=== PATIENT | female | born 1950 | race Caucasian/White ===

== ENCOUNTER 2016-04-01 11:06 | Emergency (ER) | payer OTHER ==
[~2016-04-01] VITALS: Ht 165.1 cm; Wt 160.0 kg
[~2016-04-01 11:06] MED LIST: EXCETAB2; LORTA5 PO; PHEN100 PO
[2016-04-01 13:47] VITALS: BP 141/90; PULSE 85; RESP 18; TEMP 98.3; O2SAT 95
[2016-04-01] MEDS ORDERED: NORC5TAB PO (13:55)
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
== END 2016-04-01 14:16 | disposition home or self-care (01) ==
LOC: NEPA 11:06
DX: M79.609 Pain in unspecified limb (principal); G89.29 Other chronic pain; J45.909 Unspecified asthma, uncomplicated; E78.00 Pure hypercholesterolemia, unspecified; I10 Essential (primary) hypertension
CPT/HCPCS: 99284

== ENCOUNTER 2016-05-05 13:56 | Inpatient (IN) | payer OTHER ==
[~2016-05-05] VITALS: Ht 165.1 cm; Wt 128.2 kg
[~2016-05-05 13:56] MED LIST changes: +NORC5TAB PO
[2016-05-05 14:15] VITALS: BP 186/96; PULSE 89; RESP 18; TEMP 98.9; O2SAT 91
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
[2016-05-05 14:58] VITALS: BP 194/86; PULSE 104; RESP 18; O2SAT 93
[2016-05-05] MEDS ORDERED: cloNIDine HCL 0.1 MG TAB PO ONE (15:15)
[2016-05-05 15:27] LABS: AUTOMATED NEUTROPHIL # 5.9 TH/MM3 (1.8-7.7); BASOPHIL # 0.1 TH/MM3 (0-0.2); BASOPHIL % 0.6 % (0.0-2.0); EOSINOPHIL # 0.2 TH/MM3 (0-0.4); EOSINOPHIL % 2.1 % (0.0-4.0); HEMATOCRIT 41.5 % (35.0-46.0); HEMO FLAGS DIFF FINAL; LYMPHOCYTE # 3.1 TH/MM3 (1.0-4.8); MEAN CELL VOLUME 94.9 FL (80.0-100.0); MEAN CORPUSCULAR HEMOGLOBIN 32.6 PG (27.0-34.0); MEAN CORPUSCULAR HGB CONC 34.4 % (32.0-36.0); MONO % 8.5 % (0.0-8.0); NEUT % 57.8 % (16.0-70.0); PLATELET COUNT 281 TH/MM3 (150-450); RED BLOOD COUNT 4.37 MIL/MM3 (4.00-5.30); RED CELL DISTRIBUTION WIDTH 13.3 % (11.6-17.2); WHITE BLOOD COUNT 10.1 TH/MM3 (4.0-11.0)
[2016-05-05 15:53] LABS: ACETAMINOPHEN LESS THAN 2.0 MCG/ML (10.0-30.0); ALKALINE PHOSPHATASE 103 U/L (45-117); ALT (GPT) 18 U/L (10-53); ANION GAP 9 MEQ/L (5-15); AST (GOT) 16 U/L (15-37); BLOOD UREA NITROGEN 19 MG/DL (7-18); CHLORIDE 106 MEQ/L (98-107); GLOMERULAR FILTRATION RATE 72 ML/MIN (>89); SODIUM (NA) 141 MEQ/L (136-145); TOTAL BILIRUBIN ADULT 0.2 MG/DL (0.2-1.0)
[2016-05-05 15:54] LABS: POTASSIUM 4.1 MEQ/L (3.5-5.1)
[2016-05-05 17:21] VITALS: BP 158/100; PULSE 79; RESP 20; O2SAT 93
[2016-05-05 18:21] VITALS: BP 186/90; PULSE 89; RESP 18; O2SAT 93
[2016-05-05 18:59] LABS: AMPHETAMINE, URINE NEG (NEG); BARBITURATES, URINE NEG (NEG); COCAINE, URINE NEG (NEG)
[2016-05-05 19:22] LABS: BACTERIA, URINE MANY /hpf; BLOOD, URINE TRACE (NEG); COMMENT (UR) CULTURE INDICATED; CULTURE IF INDICATED CULTURE INDICATED; GLUCOSE,URINE NEG (NEG); HYALINE CAST, URINE 2 /lpf (RARE); KETONE, URINE NEG (NEG); MUCUS URINE FEW /lpf (OCC); PH, URINE 5.5 (5.0-8.5); SQUAMOUS EPITHELIAL CELL URINE 7 /hpf (0-5); URINE COLOR YELLOW (YELLW/STRAW)
[2016-05-05 19:25] LABS: NITRITE,URINE POS (NEG)
[2016-05-05] MEDS ORDERED: CIPR-9 PO (19:40)
[2016-05-05] MEDS ORDERED: CIPROFLOXACIN 500 MG TAB PO ONE (19:45)
[2016-05-05] MEDS ORDERED: CIPROFLOXACIN 500 MG TAB PO SCH (21:48)
[2016-05-05] MEDS ORDERED: hydrOXYzine HCL 50 MG TAB PO PRN (22:00)
[2016-05-05] MEDS ORDERED: diphenhydrAMINE HCL 50 MG CAP - HS PRN PO (22:00)
[2016-05-05] MEDS ORDERED: diphenhydrAMINE HCL 50 MG/ML VIAL IM PRN (22:00)
[2016-05-05] MEDS ORDERED: diphenhydrAMINE HCL 50 MG/ML VIAL - HS PRN IM (22:00)
[2016-05-05] MEDS: PHENYTOIN SODIUM 100 MG CAP PO SCH (22:00)
[2016-05-05] MEDS ORDERED: MAGNESIUM HYDROXIDE SUSP 30 ML CUP PO PRN (22:00)
[2016-05-05] MEDS ORDERED: OLANZapine ODT 10 MG TAB PO ONE (22:00)
[2016-05-05] MEDS ORDERED: ALUMINUM/MAGNESIUM/SIMETH 30 ML CUP PO PRN (22:00)
[2016-05-05] MEDS ORDERED: LORazepam 2 MG/ML VIAL IM PRN (22:00)
[2016-05-05 22:33] VITALS: BP 175/93; PULSE 78; RESP 20; O2SAT 93
[2016-05-05] MEDS: diphenhydrAMINE HCL 50 MG CAP PO PRN (22:34)
[2016-05-05 22:45] VITALS: BP 150/97; PULSE 74; RESP 20; O2SAT 94
[2016-05-06 06:31] VITALS: BP 131/60; PULSE 70; RESP 18; TEMP 97.6; O2SAT 98
[2016-05-06] MEDS: PHENYTOIN SODIUM 100 MG CAP PO SCH ×3 (06:43→20:57)
[2016-05-06 08:28] LABS: ANION GAP 7 MEQ/L (5-15); BICARBONATE 29.8 MEQ/L (21.0-32.0); BLOOD UREA NITROGEN 16 MG/DL (7-18); CHLORIDE 107 MEQ/L (98-107); GLOMERULAR FILTRATION RATE 65 ML/MIN (>89); LDL CHOLESTEROL 137 MG/DL (0-99); POTASSIUM 3.8 MEQ/L (3.5-5.1); SODIUM (NA) 144 MEQ/L (136-145)
[2016-05-06] MEDS: CIPROFLOXACIN 500 MG TAB PO SCH ×2 (09:07→20:57)
--- NOTE | 2016-05-06 09:49 | HHI.HP ---
Provisional Diagnosis Admission Date May 05, 2016 at 21:46 [place]. Psychotic disorder Certification of Person's Competence To Provide Express and Informed Consent I have personally examined Merlene Calderon , a person being served at [facility] on, May 06, 2016 09:42. Express and informed consent means consent voluntarily given in writing, by a competent person, after sufficient explanation and disclosure of the subject matter involved to enable the person to make a knowing and willful decision without any element of force, fraud, deceit, duress, or other form of constraint or coercion. This person is 18 years of age or older, is not now known to be incompetent to consent to treatment with a guardian advocate, and does not have a health care surrogate or proxy currently making medical treatment decisions. I have found this person to be one of the following: [x] Competent to provide express and informed consent, as defined above, for voluntary admission to this facility and is competent to provide express and informed consent for treatment. He/she has the consistent capacity to make well reasoned, willful, and knowing decisions concerning his or her medical or mental health treatment. The person fully and consistently understands the purpose of the admission for examination/placement and is fully capable of personally exercising all rights assured [place] [] Incompetent to provide express and informed consent to voluntary admission, and this is incompetent to provide express and informed consent to treatment. The person must be transferred to involuntary status and a petition for a guardian advocate filed with the Circuit Court. [] Refusing to provide express and informed consent to voluntary admission but is competent to provide express and informed consent for treatment. The person must be discharged or transferred to involuntary status. Form shall be completed within 24 hours of a person's arrival at the receiving facility and filed in the clinical record of each person: 1. Admitted on a voluntary basis 2. Permitted to provide express and informed consent to his/her own treatment 3. Allowed to transfer from involuntary to voluntary status 4. Prior to permitting a person to consent to his or her own treatment after having been previously found incompetent to consent to treatment. History of Present Illness Capacity: Has Capacity HPI This is a 65-year-old female with no admitted psychiatric history that presents with symptoms of psychosis. The patient has apparently been taking her ' s opiates in significant quantities. According to the nursing report in the emergency department, the patient's last year but she is unaware or unwilling to accept that information. Upon interview the patient has no idea why she has been hospitalized. She is oriented to person and place but not time or situation. She continues to speak about her as if he were alive. There does not seem to be any family members able to provide information or care for her at this time. Review of Systems ROS Limitations: Clinical Condition Except as stated in HPI: all other systems reviewed are Neg Past Psych History Psychological trauma history Denies Violence risk - others (6 mos) Minimal Violence risk - self (6 mos) Moderate Substance Abuse History Drugs/Alcohol past 12 months Abusing opiates. Unknown quantities. Past Family Social History Coded Allergies: No Known Allergies (Verified , 05/05/16) Active Scripts Ciprofloxacin (Cipro)500 Mg Hoh491 Mg PO BID 7 Days Ref 0 Prov:Chrissie Joiner 05/05/16 Discontinued Reported Medications Axwqpcq-Oqytvmxhkhlxa-Apoipkss (Excedrin Extra Strength)Ex St Tab Prn (Pain) 08/25/13 Discontinued Scripts Hydrocodone-Acetaminophen ([place])5-325 mg Tab1 Tab PO Q6H PRN (PAIN) #20 TAB Prov:Jose Zhou MD 04/01/16 Phenytoin Sodium (Dilantin 100 Mg Kapseals)100 Mg Flcnw418 Mg PO Q8 #90 CAPCR Prov:LYNDSAY SUERO MD R3 08/25/13 Hydrocodone-Acetaminophen 5-325 mg ([place] 5-325 mg)Acetaminophen 325/5 Hydrocodone Tab1 Tab PO Q6H PRN (pain) #40 TAB Prov:Favio Gandara MD 08/10/13 Current Medications Medications (Trade) Dose Ordered Sig/Daily Route Start Time Stop Time Status Last Admin (Ativan) 1 mg Q6H PRN PO 05/05/16 22:00 (Ativan Inj) 1 mg Q6H PRN IM 05/05/16 22:00 (Atarax) 50 mg Q6H PRN PO 05/05/16 22:00 (Benadryl) 50 mg Q6H PRN PO 05/05/16 21:45 05/05/16 22:34 (Benadryl Inj) 50 mg Q6H PRN IM 05/05/16 22:00 (Benadryl) 50 mg HS PRN PO 05/05/16 22:00 (Benadryl Inj) 50 mg HS PRN IM 05/05/16 22:00 (Desyrel) 50 mg HS PRN PO 05/05/16 22:00 (Tylenol) 650 mg Q4H PRN PO 05/05/16 22:00 (Milk Of Magnesia Liq) 30 ml DAILY PRN PO 05/05/16 22:00 (Mag-Al Plus Susp Liq) 30 ml Q6H PRN PO 05/05/16 22:00 (Dilantin) 100 mg Q8H PO 05/05/16 22:00 05/06/16 06:43 (Cipro) 500 mg BID@08,20 PO 05/06/16 08:00 05/12/16 08:01 05/06/16 09:07 Family History Patient unable to describe Social History Lives alone. of heart disease approximately a year ago. Patient abuses his opiate pain medicines but reportedly does not abuse alcohol or other drugs. Patient's Strengths (min. 2) Verbal and resilient. Physical Exam GENERAL: SKIN: Warm and dry. HEAD: Normocephalic. EYES: No scleral icterus. No injection or drainage. NECK: Supple, trachea midline. No JVD or lymphadenopathy. CARDIOVASCULAR: Regular rate and rhythm without murmurs, gallops, or rubs. RESPIRATORY: Breath sounds equal bilaterally. No accessory muscle use. GASTROINTESTINAL: Abdomen soft, non-tender, nondistended. MUSCULOSKELETAL: No cyanosis, or edema. BACK: Nontender without obvious deformity. No CVA tenderness. Vital Signs Vital Signs Date Time Temp Pulse Resp B/P Pulse Ox O2 Delivery O2 Flow Rate FiO2 05/06/16 06:31 97.6 70 18 131/60 98 05/05/16 22:33 Room Air Mental Status Examination Speech: Unremarkable Orientation: x3 Memory: Unremarkable Thought Process: Goal Directed, Loose Association Thought Content: Bizarre thinking Hallucination Type: Auditory Attention and Concentration: Easily Distracted Suicidal Ideation: No Previous Suicide Attempts: No Homicidal Ideation: No Previous Homicide Attempts: No Insight: Fair, Poor Judgement: Impulsive Affect: Good Mood: Appropriate Motor Activity: Normal gait Assessment & Plan Problem List: (1) Brief psychotic disorder ICD Code: F23 Assessment & Plan Estimated LOS: 5-7 days patient is psychotic for unknown reasons. She is possibly psychotic due to significant opiate abuse. We will observe and evaluate her over the next 24 hours without opiates to assess for withdrawal and /or prolonged intoxication. At that point if she is not clearing, she will be treated with antipsychotic medication in relatively low dose. We will have habits reevaluate her if we do not gather a history of previous psychiatric illness or treatment. Favio Ervin MD May 06, 2016 09:49
[2016-05-06] MEDS: ACETAMINOPHEN 325 MG TAB PO PRN ×2 (10:48→20:58)
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
[2016-05-06 16:06] LABS: HEMOGLOBIN A1b 1.2 %; HEMOGLOBIN F 1.1 %; HEMOGLOBIN P3 4.1 %
[2016-05-06 17:55] VITALS: BP 138/61; PULSE 80; RESP 20; TEMP 98; O2SAT 93
[2016-05-06] MEDS: ATORVASTATIN 20 MG TAB PO SCH (20:57)
[2016-05-06] MEDS: diphenhydrAMINE HCL 50 MG CAP PO PRN (20:57)
[2016-05-07] MEDS: ACETAMINOPHEN 325 MG TAB PO PRN ×4 (03:15→22:40)
[2016-05-07] MEDS: LORazepam 1 MG TAB PO PRN (03:15)
[2016-05-07] MEDS: PHENYTOIN SODIUM 100 MG CAP PO SCH ×3 (05:50→20:39)
[2016-05-07 05:56] VITALS: BP 128/63; PULSE 68; RESP 18; TEMP 97.9; O2SAT 95
[2016-05-07] MEDS: HYDROCHLOROTHIAZIDE 25 MG TAB PO SCH (09:10)
[2016-05-07] MEDS: CIPROFLOXACIN 500 MG TAB PO SCH ×2 (09:10→20:39)
--- NOTE | 2016-05-07 12:48 | HHI.PYPN ---
Subjective Remarks Patient remains loose in her associations, delusional in her thinking, confused , disoriented and depressed because she feels she has no place to go. It is this physician understanding that the patient lives in a home previously owned by she and her . It does not appear that she is improving without psychotropic medicines so this physician would like to try Abilify 2 mg at bedtime. Review of Systems ROS Limitations: Clinical Condition Except as stated in HPI: all other systems reviewed are Neg Objective Alert: Yes [place]: Person, Place Mood: Anxious, Calm Affect: Restricted Memory Intact: Immediate, Remote Hallucinations: Other Delusions: No Delusion Type: Other Suicidal: Ideation Homicidal: Ideation Insight/Judgement Remains impaired. Labs Date/Time Procedure Status Source Growth 05/05/16 18:20 Urine Culture - Final Complete Urine Clean Catch Escherichia Coli Vitals/IOs Vital Signs Date Time Temp Pulse Resp B/P Pulse Ox O2 Delivery O2 Flow Rate FiO2 05/07/16 05:56 97.9 68 18 128/63 95 05/05/16 22:33 Room Air Assessment & Plan Problem List: (1) Brief psychotic disorder ICD Code: F23 Assessment & Plan Estimated LOS: 5 days. Days patient is not clearing as rapidly as would be hoped if her delusional thinking is due to drug abuse. Therefore this physician will start low dose Abilify in hopes of clearing her thought process and content. Justification for Cont. Inpt. Psychotic and unable to care for self. Favio Ervin MD May 07, 2016 12:48
[2016-05-07 16:55] VITALS: BP 154/86; PULSE 86; RESP 18; TEMP 97.2; O2SAT 95
[2016-05-07] MEDS: ATORVASTATIN 20 MG TAB PO SCH (20:39)
[2016-05-07] MEDS ORDERED: ARIPiprazole 2 MG TAB PO SCH (21:00)
[2016-05-08] MEDS: PHENYTOIN SODIUM 100 MG CAP PO SCH ×3 (05:17→21:49)
[2016-05-08] MEDS: ACETAMINOPHEN 325 MG TAB PO PRN ×3 (05:17→21:12)
[2016-05-08 05:28] VITALS: BP 161/86; PULSE 80; RESP 18; TEMP 98.1; O2SAT 96
[2016-05-08] MEDS: CIPROFLOXACIN 500 MG TAB PO SCH ×2 (08:44→19:58)
[2016-05-08] MEDS: HYDROCHLOROTHIAZIDE 25 MG TAB PO SCH (08:45)
--- NOTE | 2016-05-08 11:11 | HHI.PYPN ---
Subjective Remarks Patient continues to demonstrate disorganized thinking and delusional thinking. This physician has convinced her to sign in voluntarily for further treatment. She is unable to care for herself and believes that her will continue to provide for her. Review of Systems ROS Limitations: Clinical Condition Objective Alert: Yes [place]: Person, Place Mood: Anxious, Calm Affect: Restricted Memory Intact: Immediate, Remote Hallucinations: Other Delusions: Yes Delusion Type: Other Suicidal: Ideation Homicidal: Ideation Insight/Judgement Markedly impaired Labs Date/Time Procedure Status Source Growth 05/05/16 18:20 Urine Culture - Final Complete Urine Clean Catch Escherichia Coli Vitals/IOs Vital Signs Date Time Temp Pulse Resp B/P Pulse Ox O2 Delivery O2 Flow Rate FiO2 05/08/16 05:28 98.1 80 18 161/86 96 05/05/16 22:33 Room Air Intake and Output 05/07/16 05/07/16 05/08/16 08:00 16:00 00:00 Intake Total 360 ml Balance 360 ml Assessment & Plan Problem List: (1) Brief psychotic disorder ICD Code: F23 Assessment & Plan Estimated LOS: 3 days the patient still remains markedly psychotic and loose in her associations and unable to care for self. We will titrate up her antipsychotic therapy and attempt to get a hold of her son for discharge planning. Justification for Cont. Inpt. Psychotic and unable to care for herself. Favio Ervin MD May 08, 2016 11:11
[2016-05-08] MEDS: LORazepam 1 MG TAB PO PRN (13:19)
--- NOTE | 2016-05-08 14:36 | HHI.PR ---
Subjective Remarks Follow-up visit HTN, HLD, chronic pain, UTI. Patient seen today. Reports she is doing well. Complaints of generalized pain, back and arms and hands and legs , not worsening, intermittent. Denies dysuria, hematuria, abdominal cramping. Denies SOB/ dyspnea. Denies chest pain, palpitations, headaches, dizziness. Denies fevers, chills, n/v/d. Objective Vitals Vital Signs Date Time Temp Pulse Resp B/P Pulse Ox O2 Delivery O2 Flow Rate FiO2 05/08/16 05:28 98.1 80 18 161/86 96 05/07/16 16:55 97.2 86 18 154/86 95 I/O 05/07/16 05/07/16 05/07/16 05/08/16 05/08/16 05/08/16 07:00 15:00 23:00 07:00 15:00 23:00 Intake Total 360 ml Balance 360 ml Intake Oral 360 ml Result Diagram: 05/05/16 1445 05/06/16 0635 Objective Remarks GENERAL: This is an obese, well-developed, disheveled patient, in no apparent distress. SKIN: No rashes, ecchymoses or lesions. Cool and dry. HEAD: Normocephalic EYES: Pupils equal round and reactive. Extraocular motions intact. No scleral icterus. No injection or drainage. ENT: Nose without bleeding. Throat without erythema. Uvula midline. Airway patent. NECK: Trachea midline. No JVD or lymphadenopathy. Supple. CARDIOVASCULAR: Regular rate and rhythm without murmurs, gallops, or rubs. RESPIRATORY: Clear to auscultation. Breath sounds equal bilaterally. No wheezes , rales, or rhonchi. GASTROINTESTINAL: Abdomen soft, non-tender, nondistended. Obese. Bowel sounds active 4. MUSCULOSKELETAL: Extremities without clubbing, cyanosis, trace bilateral lower extremity edema. Bilateral wrist brace in place. NEUROLOGICAL: Awake and alert. Confuse. Disorganized thoughts. Motor and sensory grossly within normal limits. Normal speech. A/P Problem List: (1) UTI (urinary tract infection) ICD Code: N39.0 Status: Acute (2) Seizure ICD Code: R56.9 Status: Acute (3) HTN (hypertension) ICD Code: I10 Status: Acute Assessment and Plan Patient is a 65 year old white female who has a primary medical history of seizure disorder, chronic pain, hypertension, anxiety, depression who came in to the hospital under [place] act for psychiatric evaluation. Patient and has been allegedly seeing people going in and out of her attic, that she started screaming to make them go away and they called plant maintenance manager on her. Patient is now admitted to inpatient psych, treat for further evaluation. Consulted for medical management of seizure disorder, chronic pain. Patient has been for over a year. Psychosis, anxiety, depression - managed by psychiatry team Urinary tract infection - UA positive. Microbiology pending. - Patient started on Cipro - Denies dysuria, abdominal cramping on exam - May contribute to confusion HTN - BP trend elevated. Patient was given clonidine - Restart hydrochlorothiazide 25 mg daily - Clonidine when necessary - Monitor BP trend HLD - cholesterol 220, LDL 137, H DL 62 - ASCVD risk 10 year 7.5% calculated risk - Recommended for moderate to high intensity statin - start Lipitor 20 mg daily Chronic pain - Tylenol, ibuprofen DVT prop ambulatory Discussed with patient, nursing Stable from Hospitalist standpoint. We will sign off. Reconsult as needed. Written by Jesús Benito, acting as scribe for Dr. Rosas on 05/08/16 at 14: 34. All or portions of this note were transcribed by scribe [Jesús Benito]. I, Dr. Charlie Rosas personally performed the history, physical exam, and medical decision making; and confirmed the accuracy of the information in the transcribed note. Authenticated by Dr. Charlie Rosas on 05/08/16 at 1500. Problem Qualifiers (1) UTI (urinary tract infection): Qualified Code: N39.0 - Urinary tract infection without hematuria, site unspecified Jesús Kelley May 08, 2016 14:36 Charlie Rosas MD May 08, 2016 20:56
[2016-05-08] MEDS: IBUPROFEN 200 MG TAB PO PRN (19:58)
[2016-05-08] MEDS: diphenhydrAMINE HCL 50 MG CAP PO PRN (19:58)
[2016-05-08] MEDS: ATORVASTATIN 20 MG TAB PO SCH (20:43)
[2016-05-08] MEDS ORDERED: ARIPiprazole 5 MG TAB PO SCH (21:00)
[2016-05-08 21:45] VITALS: BP 159/84; PULSE 77; RESP 18; TEMP 97.9; O2SAT 98
[2016-05-09] MEDS: ACETAMINOPHEN 325 MG TAB PO PRN ×3 (02:30→23:24)
[2016-05-09] MEDS: IBUPROFEN 200 MG TAB PO PRN ×3 (03:31→20:25)
[2016-05-09] MEDS: PHENYTOIN SODIUM 100 MG CAP PO SCH ×3 (06:07→20:25)
[2016-05-09] MEDS: diphenhydrAMINE HCL 50 MG CAP PO PRN (06:14)
[2016-05-09 06:15] VITALS: BP 163/82; PULSE 79; RESP 20; TEMP 97.6; O2SAT 98
[2016-05-09] MEDS: CIPROFLOXACIN 500 MG TAB PO SCH ×2 (09:24→20:26)
[2016-05-09] MEDS: HYDROCHLOROTHIAZIDE 25 MG TAB PO SCH (09:24)
--- NOTE | 2016-05-09 11:53 | HHI.PYPN ---
Subjective Remarks Patient seen in her room with nurse Kimberlyn, patient laying in bed, somewhat anxious look on her face. She states that her is still alive that she does not quite where he is but she has not seen him in a while. She states there is some be visiting her today. She also believes that there are 4 people in her attic she states she has not seen them but she hears them talking and shuffling around. Patient compliant medication. Will increase Abilify to 5 mg twice a day Review of Systems Except as stated in HPI: all other systems reviewed are Neg Objective Alert: Yes [place]: Person, Place Mood: Anxious, Calm Affect: Restricted Memory Intact: Immediate, Remote Hallucinations: Auditory, Other Delusions: Yes Delusion Type: Other Suicidal: Ideation Homicidal: Ideation Insight/Judgement Very poor Labs Date/Time Procedure Status Source Growth 05/05/16 18:20 Urine Culture - Final Complete Urine Clean Catch Escherichia Coli Vitals/IOs Vital Signs Date Time Temp Pulse Resp B/P Pulse Ox O2 Delivery O2 Flow Rate FiO2 05/09/16 06:15 97.6 79 20 163/82 98 05/05/16 22:33 Room Air Assessment & Plan Problem List: (1) Brief psychotic disorder ICD Code: F23 Assessment & Plan Estimated LOS: days patient continues psychotic and delusional. Compliant medications. See medication adjustment above Justification for Cont. Inpt. At this time patient will decompensate to placed a lower level of care Discharge Planning To be determined Wiliam Tello MD May 09, 2016 11:53
[2016-05-09 19:20] VITALS: BP 144/89; PULSE 83; RESP 20; TEMP 97.9; O2SAT 94
[2016-05-09] MEDS: ARIPiprazole 5 MG TAB PO SCH (20:24)
[2016-05-09] MEDS: ATORVASTATIN 20 MG TAB PO SCH (20:26)
[2016-05-09] MEDS: LORazepam 1 MG TAB PO PRN (21:47)
[2016-05-10 06:21] VITALS: BP 139/76; PULSE 75; RESP 18; TEMP 94.8; O2SAT 94
[2016-05-10] MEDS: PHENYTOIN SODIUM 100 MG CAP PO SCH ×3 (06:29→21:55)
[2016-05-10] MEDS: IBUPROFEN 200 MG TAB PO PRN (06:29)
[2016-05-10] MEDS: ARIPiprazole 5 MG TAB PO SCH ×2 (09:30→20:43)
[2016-05-10] MEDS: CIPROFLOXACIN 500 MG TAB PO SCH ×2 (09:30→20:43)
[2016-05-10] MEDS: HYDROCHLOROTHIAZIDE 25 MG TAB PO SCH (09:30)
[2016-05-10] MEDS: ACETAMINOPHEN 325 MG TAB PO PRN (15:20)
--- NOTE | 2016-05-10 18:57 | HHI.PYPN ---
Subjective Remarks Pt seen and discussed with staff.She remains delusional with poor self care. She is bizarre in behaviors. She is compliant wiht medications and denies side effects. No SI/HI. Review of Systems Psychiatric: COMPLAINS OF: Hallucinations, Delusions Objective Alert: Yes [place]: Person, Place Mood: Anxious, Calm Affect: Restricted Memory Intact: Immediate, Remote Hallucinations: Auditory, Other Delusions: Yes Delusion Type: Other (bizarre) Suicidal: Ideation Homicidal: Ideation Insight/Judgement poor Vitals/IOs Vital Signs Date Time Temp Pulse Resp B/P Pulse Ox O2 Delivery O2 Flow Rate FiO2 05/10/16 06:21 94.8 75 18 139/76 94 Assessment & Plan Problem List: (1) Brief psychotic disorder ICD Code: F23 Assessment & Plan Continue current tx plan. Estimated LOS: days Justification for Cont. Inpt. impairments in reality construction Kimi Orlando MD May 10, 2016 18:57
[2016-05-10] MEDS: ATORVASTATIN 20 MG TAB PO SCH (20:43)
[2016-05-10 21:30] VITALS: BP 154/75; PULSE 84; RESP 18; TEMP 97.6; O2SAT 96
[2016-05-10] MEDS: traZODone HCL 50 MG TAB PO PRN (21:57)
[2016-05-11] MEDS: LORazepam 1 MG TAB PO PRN (02:22)
[2016-05-11] MEDS: IBUPROFEN 200 MG TAB PO PRN ×2 (02:22→13:12)
[2016-05-11 03:00] VITALS: BP 132/82; PULSE 80; RESP 18
[2016-05-11] MEDS: ACETAMINOPHEN 325 MG TAB PO PRN ×2 (03:35→21:27)
[2016-05-11] MEDS: diphenhydrAMINE HCL 50 MG CAP PO PRN (03:36)
[2016-05-11 05:00] VITALS: BP 139/67; PULSE 90; RESP 18; TEMP 98; O2SAT 98
[2016-05-11] MEDS: PHENYTOIN SODIUM 100 MG CAP PO SCH ×3 (06:17→21:27)
[2016-05-11] MEDS: CIPROFLOXACIN 500 MG TAB PO SCH ×2 (08:46→21:28)
[2016-05-11] MEDS: ARIPiprazole 5 MG TAB PO SCH ×2 (08:46→21:28)
[2016-05-11] MEDS: HYDROCHLOROTHIAZIDE 25 MG TAB PO SCH (08:46)
[2016-05-11 17:51] VITALS: BP 152/60; PULSE 97; RESP 18; TEMP 97.8; O2SAT 98
--- NOTE | 2016-05-11 19:29 | HHI.PYPN ---
Subjective Remarks Pt seen and discussed with staff. Pt has been increasingly irritable and more fixed on delusions. She is malodorous and gets agitated when encouraged to shower and has to be redirected from removing clothes in the hallway. She is compliant with medications but insight is poor. No SI/HI. Objective Alert: Yes [place]: Person, Place Mood: Anxious, Calm Affect: Restricted Memory Intact: Immediate, Remote Hallucinations: Auditory, Other Delusions: Yes Delusion Type: Other (bizarre) Suicidal: Ideation Homicidal: Ideation Insight/Judgement poor Vitals/IOs Vital Signs Date Time Temp Pulse Resp B/P Pulse Ox O2 Delivery O2 Flow Rate FiO2 05/11/16 17:51 97.8 97 18 152/60 98 Assessment & Plan Problem List: (1) Brief psychotic disorder ICD Code: F23 Assessment & Plan Continue current tx plan. Estimated LOS: days Justification for Cont. Inpt. impairments in reality construction Kimi Orlando MD May 11, 2016 19:29
[2016-05-11] MEDS: ATORVASTATIN 20 MG TAB PO SCH (21:27)
[2016-05-12] MEDS: IBUPROFEN 200 MG TAB PO PRN ×2 (00:46→17:47)
[2016-05-12] MEDS: traZODone HCL 50 MG TAB PO PRN (00:46)
[2016-05-12] MEDS: PHENYTOIN SODIUM 100 MG CAP PO SCH ×2 (06:00→13:27)
[2016-05-12 06:08] VITALS: BP 115/65; PULSE 72; RESP 20; TEMP 98.9; O2SAT 93
[2016-05-12] MEDS: CIPROFLOXACIN 500 MG TAB PO SCH (08:53)
[2016-05-12] MEDS: HYDROCHLOROTHIAZIDE 25 MG TAB PO SCH (08:54)
[2016-05-12] MEDS: ARIPiprazole 5 MG TAB PO SCH ×2 (08:54→20:54)
[2016-05-12] MEDS: ACETAMINOPHEN 325 MG TAB PO PRN ×3 (09:14→20:54)
[2016-05-12] MEDS ORDERED: ABIL5TAB6 PO (13:18)
[2016-05-12] MEDS ORDERED: LIPI20TA PO (13:18)
[2016-05-12] MEDS ORDERED: HYDR25TA5 PO ×2 (13:21→16:15)
--- NOTE | 2016-05-12 16:13 | HHI.DS ---
Psychiatry Discharge Summary Inpatient Psychiatric care?: Yes Advance Directive: No Reason Not Provided: none Mental Health AdvanceDirective: No Health Care Proxy: No Admission Admission Date May 05, 2016 at 21:46 Admission Diagnosis: (1) Brief psychotic disorder ICD Code: F23 Brief History This is a 65-year-old female with no admitted psychiatric history that presents with symptoms of psychosis. The patient has apparently been taking her ' s opiates in significant quantities. According to the nursing report in the emergency department, the patient's last year but she is unaware or unwilling to accept that information. Upon interview the patient has no idea why she has been hospitalized. She is oriented to person and place but not time or situation. She continues to speak about her as if he were alive. There does not seem to be any family members able to provide information or care for her at this time. Tobacco Use In Past 30 Days: No Tobacco Past 30 Days Alcohol Use: Monthly or Less Hospital Course Patient actively participated in individual and group therapies. There was little contact with the patient and her son. Therefore, although the patient does well on this unit with redirection and staff assistance, the son has not actively participated in finding a better placement than the patient living at home alone. Patient was using significant quantities of her late 's pain medication and this was felt to contribute to her psychotic thinking. At the time of discharge, it was felt she had reached maximum medical improvement from this hospital course but she still needs to stay away from extraneous medicines that do not belong to her and she needs to be in a supervised living situation. She was alert and oriented at the time of discharge with no suicidal or homicidal ideation, plan or intention. Results Blood Pressure 115 / 65 Vital Signs Date Time Temp Pulse Resp B/P Pulse Ox O2 Delivery O2 Flow Rate FiO2 05/12/16 06:08 98.9 72 20 115/65 93 None pending Summary of Procedures None Pending results at discharge: No Medications # of Antipsychotic meds at D/C: 1 Appropriate >1 Antipsych meds?: 1 Approp Antipsych med options 1 - Minimum of three failed multiple trials of monotherapy. 2 - Documented plan to taper to monotherapy due to previous use of multiple meds OR cross-taper in progress at D/C. 3 - Documentation of augmentation of Clozapine. 4 - Justification other than those listed in allowable values 1-3, document here : Discharge Discharge Date: May 12, 2016 Discharge Diagnosis: (1) Brief psychotic disorder Diagnosis: Principal ICD Code: F23 Mental Status Exam at Disch At the time of discharge the patient was calm and pleasant and cooperative. She was alert and oriented 3. She had no suicidal or homicidal ideation, plan or intent. She still had delusional thinking about the of her ex- and continues to report that he is alive. However, this is felt to be a long- standing delusional believes and not easily influenced or improved by her psychotropic medicines and a relatively short time frame. Pt Condition on Discharge: Stable Discharge Disposition: Discharge Home Discharge Instructions Diet Instructions: As Tolerated, No Restrictions Activities you can perform: Regular-No Restrictions Scheduled Appointment: Myron Villeda Appointment Date: May 14, 2016 Appointment Time: 07:30am Discharge Time <= 30 minutes Discharge/Advance Care Plan Health Problems: (1) Brief psychotic disorder Goals to promote your health * To prevent worsening of your condition and complications * To maintain your health at the optimal level Directions to meet your goals Take your medications as prescribed Follow your dietary instruction Follow activity as directed Keep your appointments as scheduled Take your immunizations and boosters as scheduled If your symptoms worsen call your PCP, if no PCP go to Urgent Care Center or Emergency Room For 01/09 questions related to your inpatient stay or results of tests pending at discharge, please contact Dr. Favio Ervin at Smoking is Dangerous to Your Health. Avoid second hand smoking Favio Ervin MD May 12, 2016 16:13
[2016-05-12] MEDS ORDERED: DILA100C PO (16:15)
[2016-05-12 17:56] VITALS: BP 137/81; PULSE 83; RESP 18; TEMP 97.1; O2SAT 96
[2016-05-12] MEDS: ATORVASTATIN 20 MG TAB PO SCH (20:54)
[2016-05-12] MEDS: diphenhydrAMINE HCL 50 MG CAP PO PRN (20:55)
== END 2016-05-12 21:30 | disposition home or self-care (01) | DRG 885 ==
LOC: NEPJ 13:56 → NEDA 21:46 → H260 22:44
PROVIDERS: ADMIT Psychiatry & Neurology Psychiatry; ATTEND Psychiatry & Neurology Psychiatry
DX: F23 Brief psychotic disorder (principal); I11.9 Hypertensive heart disease without heart failure; N39.0 Urinary tract infection, site not specified; F22 Delusional disorders; E78.5 Hyperlipidemia, unspecified; F41.8 Other specified anxiety disorders; G40.909 Epilepsy, unspecified, not intractable, without status epilepticus; G89.29 Other chronic pain; J45.909 Unspecified asthma, uncomplicated; Z79.82 Long term (current) use of aspirin; Z79.899 Other long term (current) drug therapy
CPT/HCPCS: 80048; 80053; 80061; 80185; 80307; 81001; 83036; 85025; 87077; 87086; 87186; 99285; Q0163

== ENCOUNTER 2016-05-14 10:09 | Inpatient (IN) | payer OTHER ==
[~2016-05-14] VITALS: Ht 292.1 cm; Wt 129.1 kg
[~2016-05-14 10:09] MED LIST changes: +ABIL5TAB6 PO; +CIPR-9 PO; +DILA100C PO; -EXCETAB2; +HYDR25TA5 PO; +LIPI20TA PO; -LORTA5 PO; -NORC5TAB PO; -PHEN100 PO
[2016-05-14 10:20] VITALS: BP 148/75; PULSE 82; RESP 16; TEMP 98.5; O2SAT 93
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
[2016-05-14 11:10] LABS: AUTOMATED NEUTROPHIL # 3.9 TH/MM3 (1.8-7.7); BASOPHIL % 0.4 % (0.0-2.0); EOSINOPHIL # 0.2 TH/MM3 (0-0.4); HEMATOCRIT 38.6 % (35.0-46.0); HEMO FLAGS DIFF FINAL; LYMPHOCYTE # 2.9 TH/MM3 (1.0-4.8); MEAN CELL VOLUME 93.5 FL (80.0-100.0); MEAN CORPUSCULAR HEMOGLOBIN 32.5 PG (27.0-34.0); MEAN CORPUSCULAR HGB CONC 34.8 % (32.0-36.0); MONO % 8.3 % (0.0-8.0); NEUT % 51.3 % (16.0-70.0); PLATELET COUNT 234 TH/MM3 (150-450); RED BLOOD COUNT 4.13 MIL/MM3 (4.00-5.30); RED CELL DISTRIBUTION WIDTH 12.8 % (11.6-17.2); WHITE BLOOD COUNT 7.7 TH/MM3 (4.0-11.0)
[2016-05-14 11:43] LABS: ANION GAP 6 MEQ/L (5-15); AST (GOT) 10 U/L (15-37); BICARBONATE 28.7 MEQ/L (21.0-32.0); BLOOD UREA NITROGEN 16 MG/DL (7-18); CHLORIDE 107 MEQ/L (98-107); GLOMERULAR FILTRATION RATE 73 ML/MIN (>89); POTASSIUM 3.5 MEQ/L (3.5-5.1); SODIUM (NA) 142 MEQ/L (136-145)
[2016-05-14 11:47] LABS: ALKALINE PHOSPHATASE 107 U/L (45-117); ALT (GPT) 15 U/L (10-53); TOTAL BILIRUBIN ADULT 0.1 MG/DL (0.2-1.0)
[2016-05-14 14:01] LABS: AMPHETAMINE, URINE NEG (NEG); BARBITURATES, URINE NEG (NEG); COCAINE, URINE NEG (NEG)
[2016-05-14 15:32] LABS: BACTERIA, URINE RARE /hpf; BLOOD, URINE NEG (NEG); COMMENT (UR) CULT NOT INDICATED; CULTURE IF INDICATED CULT NOT INDICATED; GLUCOSE,URINE NEG (NEG); KETONE, URINE NEG (NEG); NITRITE,URINE NEG (NEG); SQUAMOUS EPITHELIAL CELL URINE 6 /hpf (0-5); URINE COLOR YELLOW (YELLW/STRAW)
[2016-05-14] MEDS ORDERED: ALUMINUM/MAGNESIUM/SIMETH 30 ML CUP PO PRN (15:45)
[2016-05-14] MEDS ORDERED: BENZTROPINE MESYLATE 2 MG/2 ML VIAL IM PRN (15:45)
[2016-05-14] MEDS ORDERED: MAGNESIUM HYDROXIDE SUSP 30 ML CUP PO PRN (15:45)
[2016-05-14] MEDS ORDERED: BENZTROPINE MESYLATE 1 MG TAB PO PRN (15:45)
[2016-05-14 17:56] VITALS: BP 150/95; PULSE 98; RESP 18; TEMP 97.7
[2016-05-14] MEDS: PHENYTOIN SODIUM 100 MG CAP PO SCH (18:15)
[2016-05-14 18:17] VITALS: BP 150/95; PULSE 98; RESP 18; TEMP 97.7; O2SAT 95
[2016-05-14] MEDS: hydrOXYzine HCL 50 MG TAB PO PRN (20:24)
[2016-05-14] MEDS: ARIPiprazole 5 MG TAB PO SCH (20:24)
[2016-05-14] MEDS: ACETAMINOPHEN 325 MG TAB PO PRN (20:24)
[2016-05-14] MEDS: ATORVASTATIN 20 MG TAB PO SCH (20:24)
[2016-05-15] MEDS: PHENYTOIN SODIUM 100 MG CAP PO SCH ×3 (00:58→16:00)
[2016-05-15] MEDS: diphenhydrAMINE HCL 50 MG CAP PO PRN ×2 (02:04→20:21)
[2016-05-15] MEDS: ACETAMINOPHEN 325 MG TAB PO PRN ×3 (02:05→18:06)
[2016-05-15 06:35] VITALS: BP 161/93; PULSE 74; RESP 17; TEMP 97.4; O2SAT 92
[2016-05-15 08:31] LABS: POTASSIUM 4.1 MEQ/L (3.5-5.1)
[2016-05-15] MEDS ORDERED: NICOTINE 21 MG/24 HR PATCH T-DERMAL SCH (09:00)
[2016-05-15] MEDS ORDERED: REMOVE OLD PATCH T-DERMAL SCH (09:00)
[2016-05-15] MEDS: ARIPiprazole 5 MG TAB PO SCH ×2 (09:09→20:21)
[2016-05-15] MEDS: HYDROCHLOROTHIAZIDE 25 MG TAB PO SCH (09:09)
[2016-05-15] MEDS ORDERED: PNEUMOCOCCAL POLYVALENT INJ 25 MCG/0.5 ML SYR IM ONE (10:00)
[2016-05-15] MEDS ORDERED: INFLUENZA VIRUS VACCINE (QUADRIVALENT) 0.5 ML SYR IM ONE (10:00)
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
[2016-05-15 19:23] VITALS: BP 165/98; PULSE 76; RESP 18; TEMP 97.2; O2SAT 97
[2016-05-15] MEDS: ATORVASTATIN 20 MG TAB PO SCH (20:21)
[2016-05-15] MEDS: hydrOXYzine HCL 50 MG TAB PO PRN (20:21)
[2016-05-16] MEDS: PHENYTOIN SODIUM 100 MG CAP PO SCH ×3 (00:05→16:30)
[2016-05-16] MEDS: ACETAMINOPHEN 325 MG TAB PO PRN ×4 (02:10→21:58)
[2016-05-16 05:35] VITALS: BP 142/85; PULSE 73; RESP 18; TEMP 97.9; O2SAT 96
[2016-05-16] MEDS: HYDROCHLOROTHIAZIDE 25 MG TAB PO SCH (09:11)
[2016-05-16] MEDS: ARIPiprazole 5 MG TAB PO SCH ×2 (09:12→20:13)
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
[2016-05-16 18:20] VITALS: BP 141/83
[2016-05-16] MEDS: ATORVASTATIN 20 MG TAB PO SCH (20:13)
[2016-05-16] MEDS: diphenhydrAMINE HCL 50 MG CAP PO PRN (20:13)
[2016-05-16] MEDS: hydrOXYzine HCL 50 MG TAB PO PRN (21:58)
[2016-05-17 05:47] VITALS: BP 146/67; PULSE 72; RESP 18; TEMP 97.7; O2SAT 94
[2016-05-17] MEDS: ACETAMINOPHEN 325 MG TAB PO PRN ×4 (07:49→15:37)
[2016-05-17] MEDS: ARIPiprazole 5 MG TAB PO SCH (09:09)
[2016-05-17] MEDS: HYDROCHLOROTHIAZIDE 25 MG TAB PO SCH (09:09)
[2016-05-17] MEDS: PHENYTOIN SODIUM 100 MG CAP PO SCH ×3 (09:10→15:37)
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
[2016-05-17] MEDS: diphenhydrAMINE HCL 50 MG CAP PO PRN ×2 (21:08→22:03)
[2016-05-17] MEDS: ATORVASTATIN 20 MG TAB PO SCH (22:02)
[2016-05-17] MEDS: IBUPROFEN 600 MG TAB PO PRN (22:04)
[2016-05-18] MEDS: PHENYTOIN SODIUM 100 MG CAP PO SCH ×3 (00:25→16:40)
[2016-05-18] MEDS: ACETAMINOPHEN 325 MG TAB PO PRN ×3 (03:13→16:40)
[2016-05-18] MEDS: IBUPROFEN 600 MG TAB PO PRN ×2 (04:58→20:46)
[2016-05-18 06:12] VITALS: BP 123/81; PULSE 75; RESP 16; TEMP 98.4; O2SAT 93
[2016-05-18] MEDS: HYDROCHLOROTHIAZIDE 25 MG TAB PO SCH (09:03)
[2016-05-18 19:51] VITALS: BP 154/91; PULSE 78; TEMP 97.8; O2SAT 93
[2016-05-18] MEDS: ATORVASTATIN 20 MG TAB PO SCH (20:44)
[2016-05-18] MEDS: diphenhydrAMINE HCL 50 MG CAP PO PRN (20:45)
[2016-05-19] MEDS: PHENYTOIN SODIUM 100 MG CAP PO SCH ×4 (01:07→23:13)
[2016-05-19 03:19] VITALS: BP 110/59; PULSE 72; RESP 20; TEMP 98.2; O2SAT 95
[2016-05-19] MEDS: IBUPROFEN 600 MG TAB PO PRN ×3 (03:29→23:12)
[2016-05-19 06:24] VITALS: BP 110/59; PULSE 72; RESP 20; TEMP 98.2; O2SAT 95
[2016-05-19] MEDS: HYDROCHLOROTHIAZIDE 25 MG TAB PO SCH (08:43)
[2016-05-19] MEDS: hydrOXYzine HCL 50 MG TAB PO PRN (09:21)
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
[2016-05-19] MEDS: ACETAMINOPHEN 325 MG TAB PO PRN (12:57)
[2016-05-19 18:23] VITALS: BP 156/96; PULSE 75; RESP 16; TEMP 97.1; O2SAT 94
[2016-05-19] MEDS: diphenhydrAMINE HCL 50 MG CAP PO PRN (20:32)
[2016-05-19] MEDS: ATORVASTATIN 20 MG TAB PO SCH (20:32)
[2016-05-20] MEDS: ACETAMINOPHEN 325 MG TAB PO PRN ×3 (03:48→14:57)
[2016-05-20 05:22] VITALS: BP 143/77; PULSE 72; RESP 18; TEMP 98.1; O2SAT 92
[2016-05-20] MEDS: PHENYTOIN SODIUM 100 MG CAP PO SCH ×2 (08:00→14:58)
[2016-05-20] MEDS: HYDROCHLOROTHIAZIDE 25 MG TAB PO SCH (09:02)
[2016-05-20] MEDS: hydrOXYzine HCL 50 MG TAB PO PRN (09:02)
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
[2016-05-20 17:46] VITALS: BP 159/82; PULSE 72; RESP 18; TEMP 97.5; O2SAT 93
[2016-05-20] MEDS: ATORVASTATIN 20 MG TAB PO SCH (20:27)
[2016-05-20] MEDS: diphenhydrAMINE HCL 50 MG CAP PO PRN (20:28)
[2016-05-20] MEDS: IBUPROFEN 600 MG TAB PO PRN (21:20)
[2016-05-21] MEDS: PHENYTOIN SODIUM 100 MG CAP PO SCH ×3 (01:09→16:09)
[2016-05-21] MEDS: ACETAMINOPHEN 325 MG TAB PO PRN ×3 (04:06→20:17)
[2016-05-21 05:31] VITALS: BP 144/88; PULSE 73; RESP 17; TEMP 98.4; O2SAT 93
[2016-05-21] MEDS: HYDROCHLOROTHIAZIDE 25 MG TAB PO SCH (08:40)
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
[2016-05-21 16:00] VITALS: BP 166/88; PULSE 75; RESP 18; TEMP 97.6; O2SAT 94
[2016-05-21] MEDS: IBUPROFEN 600 MG TAB PO PRN (17:37)
[2016-05-21] MEDS: ATORVASTATIN 20 MG TAB PO SCH (20:15)
[2016-05-21] MEDS: hydrOXYzine HCL 50 MG TAB PO PRN (20:15)
[2016-05-22] MEDS: PHENYTOIN SODIUM 100 MG CAP PO SCH ×4 (00:07→23:48)
[2016-05-22] MEDS: IBUPROFEN 600 MG TAB PO PRN ×3 (02:39→23:49)
[2016-05-22] MEDS: hydrOXYzine HCL 50 MG TAB PO PRN ×3 (04:04→21:27)
[2016-05-22] MEDS: ACETAMINOPHEN 325 MG TAB PO PRN ×3 (04:05→19:56)
[2016-05-22 05:17] VITALS: BP 142/70; PULSE 70; RESP 18; TEMP 98.2; O2SAT 95
[2016-05-22] MEDS: HYDROCHLOROTHIAZIDE 25 MG TAB PO SCH (09:33)
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
[2016-05-22] MEDS: ATORVASTATIN 20 MG TAB PO SCH (20:06)
[2016-05-22] MEDS: diphenhydrAMINE HCL 50 MG CAP PO PRN (21:27)
[2016-05-23] MEDS: hydrOXYzine HCL 50 MG TAB PO PRN (03:53)
[2016-05-23] MEDS: ACETAMINOPHEN 325 MG TAB PO PRN ×2 (03:53→09:11)
[2016-05-23 05:01] VITALS: BP 108/70; PULSE 72; RESP 18; TEMP 98.3; O2SAT 96
[2016-05-23] MEDS: IBUPROFEN 600 MG TAB PO PRN (06:23)
[2016-05-23] MEDS: PHENYTOIN SODIUM 100 MG CAP PO SCH ×3 (08:20→23:57)
[2016-05-23] MEDS: HYDROCHLOROTHIAZIDE 25 MG TAB PO SCH (09:11)
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
[2016-05-23 19:14] VITALS: BP 158/81; PULSE 84; RESP 18; TEMP 98.4; O2SAT 95
[2016-05-23] MEDS: ATORVASTATIN 20 MG TAB PO SCH (20:24)
[2016-05-24] MEDS: IBUPROFEN 600 MG TAB PO PRN ×3 (03:05→23:44)
[2016-05-24 05:35] VITALS: BP 149/72; PULSE 73; RESP 17; TEMP 97.5; O2SAT 96
[2016-05-24] MEDS: HYDROCHLOROTHIAZIDE 25 MG TAB PO SCH (08:55)
[2016-05-24] MEDS: PHENYTOIN SODIUM 100 MG CAP PO SCH ×3 (08:55→23:03)
[2016-05-24] MEDS: ACETAMINOPHEN 325 MG TAB PO PRN (08:55)
[2016-05-24 18:17] VITALS: BP 150/94; PULSE 85; RESP 18; TEMP 97.6; O2SAT 95
--- NOTE | 2016-05-24 20:31 | HHI.PYPN ---
Subjective Remarks Pt seen and discussed with staff. She remains delusional and continues to believe is alive. Hygiene has improved and she is pleasant and cooperative on unit. STaff report that she is attending groups. Pt denies medication side effects and is compliant. No SI/HI. Objective Alert: Yes [place]: Person, Place Mood: Anxious Affect: Restricted Memory Intact: Immediate, Recent, Remote Hallucinations: Other (none) Delusions: Yes Delusion Type: Paranoid (bizarre delusions) Suicidal: Ideation (denies) Homicidal: Ideation (denies) Insight/Judgment poor Vitals/IOs Vital Signs Date Time Temp Pulse Resp B/P Pulse Ox O2 Delivery O2 Flow Rate FiO2 05/24/16 18:17 97.6 85 18 150/94 95 Assessment & Plan Problem List: (1) Schizophrenia, paranoid type ICD Code: F20.0 Assessment & Plan Continue current tx plan. Estimated LOS: days Justification for Cont. Inpt. impairments in reality construction Kimi Orlando MD May 24, 2016 20:31
[2016-05-24] MEDS: ATORVASTATIN 20 MG TAB PO SCH (21:59)
[2016-05-25] MEDS: hydrOXYzine HCL 50 MG TAB PO PRN ×2 (02:38→20:33)
[2016-05-25] MEDS: ACETAMINOPHEN 325 MG TAB PO PRN ×3 (02:38→20:33)
[2016-05-25 05:33] VITALS: BP 145/91; PULSE 74; RESP 18; TEMP 97.7; O2SAT 95
[2016-05-25] MEDS: HYDROCHLOROTHIAZIDE 25 MG TAB PO SCH (08:11)
[2016-05-25] MEDS: PHENYTOIN SODIUM 100 MG CAP PO SCH ×2 (08:11→15:44)
[2016-05-25] MEDS: IBUPROFEN 600 MG TAB PO PRN (09:40)
[2016-05-25] MEDS: diphenhydrAMINE HCL 50 MG CAP PO PRN (20:32)
[2016-05-25] MEDS: ATORVASTATIN 20 MG TAB PO SCH (20:33)
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
[2016-05-26] MEDS: PHENYTOIN SODIUM 100 MG CAP PO SCH ×4 (00:32→23:32)
[2016-05-26] MEDS: IBUPROFEN 600 MG TAB PO PRN ×2 (00:32→21:20)
[2016-05-26] MEDS: ACETAMINOPHEN 325 MG TAB PO PRN ×2 (06:18→15:05)
[2016-05-26 07:35] VITALS: BP 138/82; PULSE 78; RESP 20; TEMP 97.7; O2SAT 96
[2016-05-26] MEDS: HYDROCHLOROTHIAZIDE 25 MG TAB PO SCH (08:50)
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
[2016-05-26 20:04] VITALS: BP 155/93; PULSE 73; RESP 17; TEMP 98.8; O2SAT 95
[2016-05-26] MEDS: ATORVASTATIN 20 MG TAB PO SCH (21:19)
[2016-05-26] MEDS: diphenhydrAMINE HCL 50 MG CAP PO PRN (21:20)
[2016-05-26] MEDS: hydrOXYzine HCL 50 MG TAB PO PRN (21:20)
[2016-05-27] MEDS: IBUPROFEN 600 MG TAB PO PRN ×3 (03:59→20:51)
[2016-05-27] MEDS: hydrOXYzine HCL 50 MG TAB PO PRN ×2 (05:29→20:51)
[2016-05-27 06:25] VITALS: BP 153/83; PULSE 75; RESP 18; TEMP 97.2; O2SAT 96
[2016-05-27] MEDS: HYDROCHLOROTHIAZIDE 25 MG TAB PO SCH (08:21)
[2016-05-27] MEDS: PHENYTOIN SODIUM 100 MG CAP PO SCH ×2 (08:21→14:53)
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
[2016-05-27] MEDS: ACETAMINOPHEN 325 MG TAB PO PRN (13:26)
[2016-05-27 19:00] VITALS: BP 116/80; PULSE 75; RESP 18; TEMP 98.2; O2SAT 93
[2016-05-27] MEDS: ATORVASTATIN 20 MG TAB PO SCH (20:51)
[2016-05-27] MEDS: diphenhydrAMINE HCL 50 MG CAP PO PRN (20:51)
[2016-05-28] MEDS: PHENYTOIN SODIUM 100 MG CAP PO SCH ×3 (00:12→15:38)
[2016-05-28] MEDS: IBUPROFEN 600 MG TAB PO PRN ×2 (02:03→20:16)
[2016-05-28] MEDS: ACETAMINOPHEN 325 MG TAB PO PRN ×2 (05:53→15:32)
[2016-05-28 06:33] VITALS: BP 118/60; PULSE 68; RESP 20; TEMP 98.5; O2SAT 95
[2016-05-28] MEDS: HYDROCHLOROTHIAZIDE 25 MG TAB PO SCH (08:34)
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
[2016-05-28] MEDS ORDERED: ABILIFY MAINTENA 400 MG IM ONE ×2 (11:30→13:00)
[2016-05-28] MEDS ORDERED: [UNRECOGNIZED DRUG - OTHER] IM ONE (13:00)
[2016-05-28 17:59] VITALS: BP 159/103; PULSE 79; RESP 18; TEMP 97.8; O2SAT 95
[2016-05-28 18:01] VITALS: BP 140/90
[2016-05-28] MEDS: ATORVASTATIN 20 MG TAB PO SCH (20:15)
[2016-05-28] MEDS: hydrOXYzine HCL 50 MG TAB PO PRN (20:15)
[2016-05-29] MEDS: PHENYTOIN SODIUM 100 MG CAP PO SCH ×3 (00:08→15:33)
[2016-05-29] MEDS: ACETAMINOPHEN 325 MG TAB PO PRN ×2 (00:09→15:03)
[2016-05-29 00:28] VITALS: BP 143/69; PULSE 79; RESP 18; TEMP 97.5; O2SAT 95
[2016-05-29] MEDS: IBUPROFEN 600 MG TAB PO PRN ×2 (04:57→20:04)
[2016-05-29 05:54] VITALS: BP 132/88; PULSE 77; RESP 18; TEMP 97.6
[2016-05-29] MEDS: HYDROCHLOROTHIAZIDE 25 MG TAB PO SCH (09:07)
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
[2016-05-29] MEDS: hydrOXYzine HCL 50 MG TAB PO PRN (20:03)
[2016-05-29] MEDS: ATORVASTATIN 20 MG TAB PO SCH (20:03)
[2016-05-29] MEDS: diphenhydrAMINE HCL 50 MG CAP PO PRN (20:03)
[2016-05-30] MEDS: ACETAMINOPHEN 325 MG TAB PO PRN ×3 (00:38→17:58)
[2016-05-30] MEDS: IBUPROFEN 600 MG TAB PO PRN ×2 (05:37→20:29)
[2016-05-30 05:53] VITALS: BP 160/84; PULSE 68; RESP 18; TEMP 98.1; O2SAT 97
[2016-05-30] MEDS: PHENYTOIN SODIUM 100 MG CAP PO SCH ×4 (09:48→21:38)
[2016-05-30] MEDS: HYDROCHLOROTHIAZIDE 25 MG TAB PO SCH (09:49)
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
[2016-05-30] MEDS: hydrOXYzine HCL 50 MG TAB PO PRN (17:58)
[2016-05-30 17:59] VITALS: BP 141/75; PULSE 75; RESP 20; TEMP 98.5; O2SAT 95
[2016-05-30] MEDS: ATORVASTATIN 20 MG TAB PO SCH (20:14)
[2016-05-30] MEDS: diphenhydrAMINE HCL 50 MG CAP PO PRN (21:38)
[2016-05-31] MEDS: PHENYTOIN SODIUM 100 MG CAP PO SCH ×3 (06:00→21:17)
[2016-05-31] MEDS: IBUPROFEN 600 MG TAB PO PRN ×2 (06:25→21:17)
[2016-05-31] MEDS: hydrOXYzine HCL 50 MG TAB PO PRN (06:25)
[2016-05-31 06:41] VITALS: BP 119/56; PULSE 71; RESP 15; TEMP 97.9; O2SAT 93
[2016-05-31] MEDS: HYDROCHLOROTHIAZIDE 25 MG TAB PO SCH (08:52)
[2016-05-31] MEDS: ACETAMINOPHEN 325 MG TAB PO PRN (10:43)
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
[2016-05-31 18:00] VITALS: BP 161/98; PULSE 80; RESP 15; TEMP 98.3
[2016-05-31] MEDS: ATORVASTATIN 20 MG TAB PO SCH (21:10)
[2016-05-31] MEDS: diphenhydrAMINE HCL 50 MG CAP PO PRN (21:17)
[2016-05-31 22:00] VITALS: BP 123/67; PULSE 79; RESP 19; TEMP 97.4; O2SAT 97
[2016-06-01] MEDS: IBUPROFEN 600 MG TAB PO PRN ×2 (04:43→12:49)
[2016-06-01] MEDS: PHENYTOIN SODIUM 100 MG CAP PO SCH ×3 (05:41→21:44)
[2016-06-01] MEDS: HYDROCHLOROTHIAZIDE 25 MG TAB PO SCH (08:34)
[2016-06-01] MEDS: hydrOXYzine HCL 50 MG TAB PO PRN ×2 (08:36→22:35)
[2016-06-01] MEDS: ACETAMINOPHEN 325 MG TAB PO PRN (08:36)
--- NOTE | 2016-06-01 13:51 | HHI.PYPN ---
Subjective Remarks Patient was seen and case discussed with nursing. Patient is pleasant and cooperative with exam. Per nursing was witnessed talking to herself in the corner. Talking herself in the shower talking about in the air machine that sounds like her who she does not believe has . Compliant with medications Objective Alert: Yes [place]: Person, Place Mood: Calm Affect: Euthymic Memory Intact: Immediate (not tested) Hallucinations: Other (none) Delusions: Yes Delusion Type: Paranoid ( is alive) Suicidal: Ideation (denies) Homicidal: Ideation (denies) Insight/Judgment Poor Vitals/IOs Vital Signs Date Time Temp Pulse Resp B/P Pulse Ox O2 Delivery O2 Flow Rate FiO2 05/31/16 22:00 97.4 79 19 123/67 97 Assessment & Plan Problem List: (1) Schizophrenia, paranoid type ICD Code: F20.0 Assessment & Plan Continue current treatment plan Justification for Cont. Inpt. Patient will decompensate in a less restrictive setting Silas Staley DO Jun 01, 2016 13:51
[2016-06-01 19:13] VITALS: BP 154/99; PULSE 67; RESP 16; TEMP 97.2; O2SAT 96
[2016-06-01] MEDS: diphenhydrAMINE HCL 50 MG CAP PO PRN (20:05)
[2016-06-01] MEDS: ATORVASTATIN 20 MG TAB PO SCH (20:06)
[2016-06-02 05:15] VITALS: BP 126/79; PULSE 75; RESP 18; TEMP 97.5; O2SAT 98
[2016-06-02] MEDS: PHENYTOIN SODIUM 100 MG CAP PO SCH ×3 (06:43→22:00)
[2016-06-02] MEDS: hydrOXYzine HCL 50 MG TAB PO PRN ×2 (06:48→20:38)
[2016-06-02] MEDS: IBUPROFEN 600 MG TAB PO PRN ×2 (06:49→20:38)
[2016-06-02] MEDS: HYDROCHLOROTHIAZIDE 25 MG TAB PO SCH (09:34)
[2016-06-02] MEDS: ACETAMINOPHEN 325 MG TAB PO PRN (09:37)
--- NOTE | 2016-06-02 17:40 | HHI.PYPN ---
Subjective Remarks No change. Patient pleasant and cooperative. Review of Systems ROS Limitations: Clinical Condition Objective Alert: Yes [place]: Person, Place Mood: Calm Affect: Euthymic Memory Intact: Immediate (not tested) Hallucinations: Other (none) Delusions: Yes Delusion Type: Paranoid ( is alive) Suicidal: Ideation (denies) Homicidal: Ideation (denies) Insight/Judgment Impaired but baseline. Vitals/IOs Vital Signs Date Time Temp Pulse Resp B/P Pulse Ox O2 Delivery O2 Flow Rate FiO2 06/02/16 05:15 97.5 75 18 126/79 98 Assessment & Plan Problem List: (1) Schizophrenia, paranoid type ICD Code: F20.0 Assessment & Plan Estimated LOS: days awaiting placement. Justification for Cont. Inpt. Will decompensate with lower level of care. Favio Ervin MD Jun 02, 2016 17:40
[2016-06-02 18:00] VITALS: BP 166/81; PULSE 80; RESP 18; TEMP 97.6; O2SAT 92
[2016-06-02] MEDS: ATORVASTATIN 20 MG TAB PO SCH (20:39)
[2016-06-02] MEDS: diphenhydrAMINE HCL 50 MG CAP PO PRN (20:39)
[2016-06-03] MEDS: PHENYTOIN SODIUM 100 MG CAP PO SCH ×2 (05:44→13:26)
[2016-06-03] MEDS: ACETAMINOPHEN 325 MG TAB PO PRN (05:45)
[2016-06-03 06:11] VITALS: BP 124/70; PULSE 70; RESP 22; TEMP 98.5; O2SAT 95
[2016-06-03] MEDS: HYDROCHLOROTHIAZIDE 25 MG TAB PO SCH (08:49)
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
[2016-06-03] MEDS ORDERED: ARIP400I IM (10:16)
[2016-06-03] MEDS ORDERED: ARIP1TAB7 PO (10:16)
[2016-06-03] MEDS ORDERED: ATOR20TA15 PO (10:16)
[2016-06-03] MEDS: IBUPROFEN 600 MG TAB PO PRN (13:27)
== END 2016-06-03 13:40 | DRG 885 ==
LOC: NEPE 10:09 → NEDA 15:31 → H260 17:23
PROVIDERS: ADMIT Psychiatry & Neurology Psychiatry; ATTEND Psychiatry & Neurology Psychiatry
DX: F20.0 Paranoid schizophrenia (principal); E78.00 Pure hypercholesterolemia, unspecified; J45.909 Unspecified asthma, uncomplicated
CPT/HCPCS: 80048; 80053; 80185; 80307; 81001; 85025; 99284; Q0163